=== PATIENT | male | born 1945 | race Caucasian/White ===

== ENCOUNTER → 2023-11-30 12:47 | Outpatient (CLI) | payer MEDICARE, OTHER, SELFPAY | PROVIDERS: PCP Family Medicine; Referring Provider Dermatology MOHS-Micrographic Surgery; Visit Provider Surgery | DX: S81.802A Unspecified open wound, left lower leg, initial encounter (principal); L98.8 Other specified disorders of the skin and subcutaneous tissue; I50.9 Heart failure, unspecified; I25.10 Atherosclerotic heart disease of native coronary artery without angina pectoris; N18.6 End stage renal disease; Z99.2 Dependence on renal dialysis | CPT/HCPCS: 11042; 87070; 87075; 87205; 99203; 99214 ==

== ENCOUNTER → 2023-12-07 13:47 | Outpatient (CLI) | payer MEDICARE, OTHER, SELFPAY | LOC: WC 13:49 | PROVIDERS: PCP Family Medicine; Referring Provider Dermatology MOHS-Micrographic Surgery; Visit Provider Surgery | DX: T81.89XA Other complications of procedures, not elsewhere classified, initial encounter (principal); S81.802A Unspecified open wound, left lower leg, initial encounter; L98.8 Other specified disorders of the skin and subcutaneous tissue; I25.10 Atherosclerotic heart disease of native coronary artery without angina pectoris; N18.6 End stage renal disease; Z99.2 Dependence on renal dialysis | CPT/HCPCS: 11042 ==

== ENCOUNTER → 2023-12-12 15:08 | Outpatient (CLI) | payer MEDICARE, OTHER, SELFPAY | LOC: WC 15:17 | PROVIDERS: PCP Family Medicine; Referring Provider Dermatology MOHS-Micrographic Surgery; Visit Provider Surgery | DX: T81.89XA Other complications of procedures, not elsewhere classified, initial encounter (principal); S81.802A Unspecified open wound, left lower leg, initial encounter; L98.8 Other specified disorders of the skin and subcutaneous tissue; I25.10 Atherosclerotic heart disease of native coronary artery without angina pectoris; N18.6 End stage renal disease; Z99.2 Dependence on renal dialysis | CPT/HCPCS: 11042 ==

== ENCOUNTER → 2023-12-19 14:39 | Outpatient (CLI) | payer MEDICARE, OTHER, SELFPAY | PROVIDERS: PCP Family Medicine; Referring Provider Family Medicine; Visit Provider Surgery | DX: T81.89XA Other complications of procedures, not elsewhere classified, initial encounter (principal); S81.802A Unspecified open wound, left lower leg, initial encounter; L98.8 Other specified disorders of the skin and subcutaneous tissue; I25.10 Atherosclerotic heart disease of native coronary artery without angina pectoris; N18.6 End stage renal disease; Z99.2 Dependence on renal dialysis | CPT/HCPCS: 11042 ==

== ENCOUNTER → 2023-12-26 14:40 | Outpatient (CLI) | payer MEDICARE, OTHER, SELFPAY | PROVIDERS: PCP Family Medicine; Referring Provider Dermatology MOHS-Micrographic Surgery; Visit Provider Surgery | DX: T81.89XA Other complications of procedures, not elsewhere classified, initial encounter (principal); S81.802A Unspecified open wound, left lower leg, initial encounter; L98.8 Other specified disorders of the skin and subcutaneous tissue; I50.9 Heart failure, unspecified; I25.10 Atherosclerotic heart disease of native coronary artery without angina pectoris; N18.6 End stage renal disease; Z99.2 Dependence on renal dialysis | CPT/HCPCS: 11042; 99213 ==

== ENCOUNTER → 2024-01-02 13:34 | Outpatient (CLI) | payer MEDICARE, OTHER, SELFPAY | LOC: WC 13:35 | PROVIDERS: PCP Family Medicine; Referring Provider Dermatology MOHS-Micrographic Surgery; Visit Provider Surgery | DX: S81.802A Unspecified open wound, left lower leg, initial encounter (principal); L98.8 Other specified disorders of the skin and subcutaneous tissue; I25.10 Atherosclerotic heart disease of native coronary artery without angina pectoris; N18.6 End stage renal disease; Z99.2 Dependence on renal dialysis | CPT/HCPCS: 11042 ==

== ENCOUNTER → 2024-01-09 13:14 | Outpatient (CLI) | payer MEDICARE, OTHER, SELFPAY | PROVIDERS: PCP Family Medicine; Referring Provider Dermatology MOHS-Micrographic Surgery; Visit Provider Physician Assistant | DX: T81.89XA Other complications of procedures, not elsewhere classified, initial encounter (principal); S81.802A Unspecified open wound, left lower leg, initial encounter; L98.8 Other specified disorders of the skin and subcutaneous tissue; I25.10 Atherosclerotic heart disease of native coronary artery without angina pectoris; N18.6 End stage renal disease; Z99.2 Dependence on renal dialysis | CPT/HCPCS: 11042; 99213 ==

== ENCOUNTER → 2024-01-16 13:37 | Outpatient (CLI) | payer MEDICARE, OTHER, SELFPAY | LOC: WC 13:38 | PROVIDERS: PCP Family Medicine; Referring Provider Dermatology MOHS-Micrographic Surgery; Visit Provider Surgery | DX: T81.89XA Other complications of procedures, not elsewhere classified, initial encounter (principal); S81.802A Unspecified open wound, left lower leg, initial encounter; L98.8 Other specified disorders of the skin and subcutaneous tissue; N18.6 End stage renal disease; Z99.2 Dependence on renal dialysis; I25.10 Atherosclerotic heart disease of native coronary artery without angina pectoris | CPT/HCPCS: 11042 ==

== ENCOUNTER → 2024-01-23 13:27 | Outpatient (CLI) | payer MEDICARE, OTHER, SELFPAY | LOC: WC 13:29 | PROVIDERS: PCP Family Medicine; Referring Provider Dermatology MOHS-Micrographic Surgery; Visit Provider Surgery | DX: T81.89XA Other complications of procedures, not elsewhere classified, initial encounter (principal); S81.802A Unspecified open wound, left lower leg, initial encounter; L98.8 Other specified disorders of the skin and subcutaneous tissue | CPT/HCPCS: 11042 ==

== ENCOUNTER → 2024-02-06 15:41 | Outpatient (CLI) | payer MEDICARE, OTHER, SELFPAY | PROVIDERS: PCP Family Medicine; Referring Provider Dermatology MOHS-Micrographic Surgery; Visit Provider Surgery | DX: S81.802D Unspecified open wound, left lower leg, subsequent encounter (principal); T81.89XD Other complications of procedures, not elsewhere classified, subsequent encounter | CPT/HCPCS: 99212; 99213 ==